=== PATIENT | female | born 1980 | race Caucasian/White ===

== ENCOUNTER 2020-02-14 17:19 | Emergency (ER) | payer BC ==
[~2020-02-14] VITALS: Ht 165.1 cm; Wt 65.7 kg
--- NOTE | 2020-02-14 17:32 | NUR ---
CONTACT WITH PT, 39 YR OLD FEMALE HERE WITH C/O "SHARP PAIN IN MY LOWER ABD (RIGHT)" SUDDEN ONSET AT 3PM. DENIES N/V, DIARRHEA OR CONSTIPATION.
--- NOTE | 2020-02-14 17:53 | NUR ---
PT ABLE TO AMB TO BR, GAIT STEADY. PT PROVIDED URINE SPECIMAN, ORDERED AND SENT TO LAB.
[2020-02-14 18:02] LABS: MICROSCOPIC NOT IND
[2020-02-14] MEDS ORDERED: HYDROcodone/APAP 5/325 TABLET ONE (18:28)
[2020-02-14] MEDS ORDERED: HYDROcodone/APAP 5/325 TABLET PO ONE (18:30)
--- NOTE | 2020-02-14 18:31 | NUR ---
PT IN RADIOLOGY
--- NOTE | 2020-02-14 18:55 | NUR ---
REPORT TO GRETEL VELAZQUEZ.
--- NOTE | 2020-02-14 19:30 | NUR ---
PT TO ULTRASOUND.
--- NOTE | 2020-02-14 20:57 | NUR ---
ERP AT BEDSIDE FOR FOLLOW UP.
[2020-02-14 21:19] VITALS: BP 107/54
== END 2020-02-14 21:26 | disposition home or self-care (01) ==
LOC: ED 21:15
DX: R10.31 Right lower quadrant pain (principal); R10.2 Pelvic and perineal pain; Z87.891 Personal history of nicotine dependence
CPT/HCPCS: 74176; 76830; 81003; 99285